=== PATIENT | female | born 1945 | race Caucasian/White ===

== ENCOUNTER 2016-10-19 10:31 | Outpatient (CLI) | payer MEDICARE, OTHER | END 2016-10-19 10:32 | disposition critical access hospital (66) | LOC: EMS 10:31 | PROVIDERS: ATTEND Surgery | DX: M54.2 Cervicalgia (principal); M54.5 Low back pain; V49.59XA Passenger injured in collision with other motor vehicles in traffic accident, initial encounter; Y92.413 State road as the place of occurrence of the external cause | CPT/HCPCS: A0425; A0429 ==

== ENCOUNTER 2016-10-19 10:55 | Emergency (ER) | payer OTHER, MEDICARE ==
--- NOTE | 2016-10-19 11:54 | XRAY Preliminary Report ---
Exam: XR Chest 2 View PA/LAT IMPRESSION: Negative 2-view chest radiography. [facility] SITE ID: [id number]
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
[2016-10-19 13:10] VITALS: BP 147/74
== END 2016-10-19 13:02 | disposition home or self-care (01) ==
LOC: EDUNIT# → ED 10:55
DX: S16.1XXA Strain of muscle, fascia and tendon at neck level, initial encounter (principal); V43.62XA Car passenger injured in collision with other type car in traffic accident, initial encounter; Y92.410 Unspecified street and highway as the place of occurrence of the external cause; M25.512 Pain in left shoulder
CPT/HCPCS: 71020; 72125; 99283; 99284

== ENCOUNTER 2016-11-16 08:35 | Outpatient (CLI) | payer MEDICARE ==
--- NOTE | 2016-11-20 08:15 | MRI Preliminary Report ---
Exam: MRI Cervical Spine W/O IMPRESSION: 1. Severe facet arthropathy on the right at C7-T1 with associated edema suggesting an active arthriti c process. Infection is a less likely differential consideration. 2. No significant central canal stenosis, cord compression or focal cord signal abnormality. 3. Severe arthritic changes at the articulations of the left C1 and C2 lateral masses. 4. Multilevel degenerative foraminal stenosis, especially on the right, see final report 5. Potentially more prominent lateral recess impingement on the left at C6-C7 from left posterior par acentral disk protrusion. 6. Additional prominent multilevel degenerative cervical spinal spondylosis is present, see final rep ort. 7. Mild cervical levoscoliosis and multiple minimal to mild chronic degenerative subluxations. 8. Diffuse degenerative disk disease, most severe at C6-C7 and to the right at midline at C3-C4. [facility] SITE ID: [id number]
--- NOTE | 2016-11-20 08:38 | MRI Report ---
EXAM: MRI CERVICAL SPINE WITHOUT CONTRAST EXAM DATE: 11/16/2016 09:53 AM. CLINICAL HISTORY: Years of chronic neck pain. Right arm and shoulder pain. Bilateral hand tingling. L eft lower extremity numbness and tingling. COMPARISONS: Cervical spine CT 10/19/2016. Cervical spine MRI 02/23/2009. TECHNIQUE: Multiplanar, multisequence T1-weighted and fluid-sensitive sequences of the cervical spine without contrast. Other: None. FINDINGS: Neurologic Structures: Normal MRI appearance of the cervical spinal cord. Alignment: Cervical spine levoscoliosis. Multilevel mild chronic-appearing degenerative cervical spin e subluxations. Bone Marrow: Mild to moderate multilevel degenerative endplate signal changes. This is especially pro minent at C6-C7 and also at C3-C4 and C4-C5. Prominent amorphous edema of bone and adjacent soft tissues at the right C7-T1 facet joint where ther e are findings of advanced degenerative arthritis. Significantly progressive compared to prior MRI. Interspace Levels/Facets: C1-C2: Severe asymmetric hypertrophic degenerative arthropathy at the articulations of the lateral ma sses of C1 and C2 on the left. Patent central canal, no cord impingement. C2-C3: Mild degenerative disk disease. Larger midline posterior disk protrusion. Mild central stenosi s without focal cord compression. Patent neural foramina. C3-C4: Moderate to severe degenerative disk disease. Marginal spurring and broad-based disk bulge. Mo derately prominent facet arthropathy on the right. Minimal central stenosis. No cord compression. Pat ent left foramen. Mild to moderate foraminal stenosis on the right. C4-C5: Moderate degenerative disk disease. Shallow broad-based disk bulge. Minimal central canal narr owing, no cord impingement. Facet arthropathy, mild on the left and moderate on the right. Right side uncinate process spurring. Patent left foramen. Moderate to severe right foraminal stenosis. C5-C6: Moderate degenerative disk disease. Shallow disk bulge. No significant central stenosis or cor d compression. Minimal left and moderate to marked right side facet arthropathy with facet spurring. Minimal foraminal stenosis, right greater than left. C6-C7: Severe degenerative disk disease. Marginal spurring and broad-based disk bulge. Minimal centra l stenosis, no cord impingement. Minimal facet arthropathy. Patent right foramen. The left foramen ap pears mildly narrowed but the left lateral recess is stenotic from an asymmetric hpye-yf-loiillt disk herniation that extends laterally into the left foramen, correlate to a left C7 radiculopathy. This may be progressive. C7-T1: Mild degenerative disk disease. Shallow broad-based bulge. No significant central stenosis. Ne gligible facet arthropathy on the left but severe-appearing facet arthropathy on the right with assoc iated edema that suggests a reactive and active process. Septic facet arthritis is a less likely diff erential consideration but clinical correlation is advised. Musculature: Mild diffuse posterior paraspinal muscle fatty atrophy without acute edema. Other: No focal prevertebral soft tissue thickening. IMPRESSION: 1. Severe facet arthropathy on the right at C7-T1 with associated edema suggesting an active arthriti c process. Infection is a less likely differential consideration. 2. No significant central canal stenosis, cord compression or focal cord signal abnormality. 3. Severe arthritic changes at the articulations of the left C1 and C2 lateral masses. 4. Multilevel degenerative foraminal stenosis as described above, predominantly on the right. 5. Potentially more prominent lateral recess impingement on the left at C6-C7 from left posterior par acentral disk protrusion. 6. Additional prominent multilevel degenerative cervical spinal spondylosis is present as detailed le aldo by level above. 7. Mild cervical levoscoliosis and multiple minimal to mild chronic degenerative subluxations. 8. Diffuse degenerative disk disease, most severe at C6-C7 and to the right of midline at C3-C4. [facility] Referring Provider Line: [phone] SITE ID: [id number]
== END 2016-11-16 08:36 | disposition home or self-care (01) ==
LOC: DI 08:35
PROVIDERS: ATTEND Physician Assistant Medical
DX: M50.21 Other cervical disc displacement, high cervical region (principal); M50.31 Other cervical disc degeneration, high cervical region; M47.892 Other spondylosis, cervical region; M47.893 Other spondylosis, cervicothoracic region
CPT/HCPCS: 72141

== ENCOUNTER 2016-12-08 08:52 | Outpatient (CLI) | payer MEDICARE ==
[2016-12-08 12:39] LABS: BASOPHILS # (AUTO) 0.1 10^3/uL (0.0-0.1); EOSINOPHILS # (AUTO) 0.1 10^3/uL (0.0-0.7); EOSINOPHILS % (AUTO) 2.5 %; HCT - HEMATOCRIT 39.7 % (37.0-47.0); HGB - HEMOGLOBIN 13.4 g/dL (12.0-16.0); LYMPHOCYTES # (AUTO) 1.8 10^3/uL (1.5-3.5); MEAN CORPUSCULAR HEMOGLOBIN 31.8 pg (27.0-31.0); MEAN CORPUSCULAR HGB CONC 33.8 g/dL (32.0-36.0); MEAN CORPUSCULAR VOLUME 94.1 fL (81.0-99.0); MEAN PLATELET VOLUME 7.2 fL (7.9-10.8); MONOCYTES # (AUTO) 0.7 10^3/uL (0.0-1.0); MONOCYTES % (AUTO) 13.1 %; NEUTROPHILS % (AUTO) 52.4 %; NUCLEATED RED BLOOD CELLS AUTO 0.1 /100WBC; RED BLOOD COUNT 4.21 10^6/uL (4.20-5.40); RED CELL DISTRIBUTION WIDTH 13.1 % (12.0-15.0); UNCORRECTED WHITE BLOOD COUNT 5.7 x10^3/uL; WHITE BLOOD COUNT 5.7 x10^3/uL (4.8-10.8)
[2016-12-08 12:57] LABS: ALBUMIN/GLOBULIN RATIO 1.6 (1.0-2.2); BILIRUBIN,TOTAL 0.7 mg/dL (0.2-1.0); CALCIUM 9.2 mg/dL (8.5-10.3); CREATININE 0.7 mg/dL (0.4-1.0); POTASSIUM 4.5 mmol/L (3.5-5.0)
== END 2016-12-08 08:53 | disposition home or self-care (01) ==
LOC: LAB.WCP 08:52
PROVIDERS: ATTEND Physician Assistant Medical
DX: Z51.81 Encounter for therapeutic drug level monitoring (principal); Z79.899 Other long term (current) drug therapy
CPT/HCPCS: 36415; 80053; 85025

== ENCOUNTER 2017-03-28 10:00 | Emergency (ER) | payer MEDICARE ==
[2017-03-28 10:13] VITALS: BP 166/82
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
--- NOTE | 2017-03-28 11:10 | XRAY Preliminary Report ---
Exam: XR FOREARM LT IMPRESSION: 1. Comminuted intra-articular impaction fracture of the distal left radius. 2. Minimally displaced avulsion fracture of the ulnar styloid. [facility] SITE ID: [id number]
--- NOTE | 2017-03-28 11:12 | XRAY Report ---
EXAM: LEFT FOREARM RADIOGRAPHY EXAM DATE: 03/28/2017 10:37 AM. CLINICAL HISTORY: Fell. COMPARISON: None. TECHNIQUE: 2 views. FINDINGS: Bones: Normal. No fractures or bone lesions. Joints: Impacted comminuted intra-articular fracture of the distal left radius. Minimally displaced u lnar styloid fracture. Soft Tissues: Normal. No soft tissue swelling. IMPRESSION: 1. Comminuted intra-articular impaction fracture of the distal left radius. 2. Minimally displaced avulsion fracture of the ulnar styloid. [facility] Referring Provider Line: [phone] SITE ID: [id number]
--- NOTE | 2017-03-28 11:17 | XRAY Preliminary Report ---
Exam: XR WRIST 4 VIEW LT IMPRESSION: 1. Comminuted intra-articular impaction fracture of the distal left radius. 2. Displaced avulsion fracture of the ulnar styloid. [facility] SITE ID: [id number]
--- NOTE | 2017-03-28 11:19 | XRAY Report ---
EXAM: LEFT WRIST RADIOGRAPHY EXAM DATE: 03/28/2017 10:38 AM. CLINICAL HISTORY: Fell. COMPARISON: None. TECHNIQUE: 4 views. FINDINGS: Bones: , Minute intra-articular impaction fracture of the distal left radius. Displaced avulsion frac ture of the ulnar styloid. Joints: Normal. No subluxations. Soft Tissues: Normal. No soft tissue swelling. IMPRESSION: 1. Comminuted intra-articular impaction fracture of the distal left radius. 2. Displaced avulsion fracture of the ulnar styloid. [facility] Referring Provider Line: [phone] SITE ID: [id number]
== END 2017-03-28 12:10 | disposition home or self-care (01) ==
LOC: ED 10:00
DX: S62.101A Fracture of unspecified carpal bone, right wrist, initial encounter for closed fracture (principal); W18.39XA Other fall on same level, initial encounter
CPT/HCPCS: 29105; 99283

== ENCOUNTER 2017-03-31 10:39 | Emergency (ER) | payer MEDICARE ==
[2017-03-31 10:50] VITALS: BP 136/74
--- NOTE | 2017-03-31 11:31 | ED Physician Documentation ---
History of Present Illness - Stated complaint Stated Complaint: SLING PROBLEM - Chief complaint Chief Complaint: Ext Problem - History obtained from History obtained from: Patient, Family - History of Present Illness Timing: Yesterday - Additonal information Additional information: Patient had a fall and broke her wrist 3 days ago.She was seen in the emergency department and had a splint placed. She was placed in a sling as well and today she comes into the emergency department with complaints of her affected hand being more painful and swollen and the edge of the wrist is laying over the edge of the sling. Review of Systems Constitutional: denies: Fever Eyes: denies: Decreased vision Respiratory: denies: Cough GI: denies: Vomiting Skin: denies: Rash Musculoskeletal: reports: Extremity pain, Joint pain, Extremity swelling, Joint swelling. denies: Neck pain, Back pain Neurologic: reports: Numbness. 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 - Present Medications Home Medications: Ambulatory Orders Medication Instructions Recorded Confirmed Thyroid,Pork [Nature-Throid] 32.5 mg PO DAILY 03/28/17 03/31/17 - Allergies Allergies/Adverse Reactions: Allergies Allergy/AdvReac Type Severity Reaction Status Date / Time iodine Allergy Anaphylaxis Verified 03/31/17 10:50 - Social History Does the pt smoke?: No Smoking Status: Never smoker Does the pt drink ETOH?: No Does the pt have substance abuse?: No - Immunizations Immunizations are current?: Yes PD ED PE NORMAL - Vitals Vital signs reviewed: Yes (Hypertensive mild) - General General: No acute distress, Well developed/nourished - HEENT HEENT: Atraumatic, PERRL - Neck Neck: Supple, no meningeal sign - Respiratory Respiratory: No respiratory distress - Derm Derm: Normal color, Warm and dry, No rash - Extremities Extremities: Other (Exam of the hand and fingers now with the wrist placed into a sugar tong splint and the sling appropriately placed shows normal distal neurovascular components. The patient has improvement in her symptoms.) - Neuro Neuro: No motor deficit, No sensory deficit Eye Opening: Spontaneous Motor: Obeys Commands Verbal: Oriented GCS Score: 15 - Psych Psych: Normal mood, Normal affect Results - Vitals Vitals: Vital Signs - 24 hr 03/31/17 10:48 Temperature 36.6 C Heart Rate 70 Respiratory 16 Rate Blood Pressure 136/74 H O2 Saturation 99 Oxygen O2 Source Room air Procedures - Splint (location) left wrist Splint applied by: Tech Type of splint: Fiberglass, Sugar tong Other: Patient tolerated well, No complications, Neurovascular intact, Good alignment, Sling provided PD MEDICAL DECISION MAKING - ED course Complexity details: reviewed old records, reviewed results, re-evaluated patient , considered differential, d/w patient ED course: 71-year-old female with a recent wrist fracture has had a ill fitting splint that is now been replaced with a sugar tong splint and back into a sling that is adequately placed and fitting. She has resolution of her symptoms. Departure - Departure Disposition: 01 Home, Self Care Clinical Impression: Wrist fracture, left Qualifiers: Encounter type: subsequent encounter Fracture type: closed Fracture healing: with routine healing Qualified Code(s): S62.102D - Fracture of unspecified carpal bone, left wrist, subsequent encounter for fracture with routine healing Condition: Stable Instructions: ED Fx Wrist General Follow-Up: Anne Dominique PA-C [Primary Care Provider] - [facility] [Provider Group]
== END 2017-03-31 11:43 | disposition home or self-care (01) ==
LOC: ED 10:39
DX: S62.102D Fracture of unspecified carpal bone, left wrist, subsequent encounter for fracture with routine healing (principal); X58.XXXD Exposure to other specified factors, subsequent encounter; M19.90 Unspecified osteoarthritis, unspecified site
CPT/HCPCS: 29105; 99282

== ENCOUNTER 2017-05-22 14:18 | Outpatient (CLI) | payer MEDICARE ==
--- NOTE | 2017-05-23 16:34 | DEXA Report ---
DEXA: 05/22/2017 CLINICAL INDICATION: Osteoporosis. TECHNIQUE: Dual energy x-ray absorptiometry (DXA) was performed on a [employer] system. Regions measured are the AP spine, femoral neck, and, if needed, forearm. COMPARISON: None. In accordance with the International Society for Clinical Densitometry (ISCD) guidelines, data from previous exams may be reanalyzed using current recommendations and techniques. This is done to allow a more accurate basis for comparison with the current study. FINDINGS The data for the lumbar spine is as follows: REGION BMD (g/cm/cm) T-SCORE Z-SCORE L1 0.945 -1.5 0.7 L2 0.984 -1.8 0.4 L3 1.141 -0.5 1.7 L4 1.143 -0.5 1.8 TOTAL 1.060 -1.0 1.2 NOTE: All evaluable vertebrae are used for classification. The data for the hip is as follows: REGION BMD (g/cm/cm) T-SCORE Z-SCORE Neck 0.653 -2.8 -0.6 TOTAL 0.734 -2.2 -0.2 NOTE: The femoral neck or total proximal femur, whichever is lowest, is used for classification. IMPRESSION THE WHO CLASSIFICATION BASED ON THE INTERNATIONAL REFERENCE STANDARD IS OSTEOPOROSIS (REFERENCE LEFT FEMORAL NECK). THE FRACTURE RISK IS HIGH. RECOMMENDATION: Patients with diagnosis of osteoporosis or osteopenia should have regular bone mineral density assessment. For those eligible for Medicare, routine testing is allowed once every 2 years. Testing frequency can be increased for patients who have rapidly progressing disease or for those who are receiving medical therapy to restore bone mass. COMMENT: World Health Organization (WHO) definitions for osteoporosis and osteopenia: NORMAL BMD: T-score at 1.0 or higher, fracture risk is low. OSTEOPENIA BMD: T-score between 1.0 and -2.5, fracture risk is increased. OSTEOPOROSIS BMD: T-score at 2.5 or lower, fracture risk high. National Osteoporosis Foundation recommends: 1. Obtain adequate dietary calcium (at least 1200 mg per day) and vitamin D (400 -800 international units per day). 2. Participate, as appropriate, in regular weightbearing and muscle- strengthening exercise. 3. Avoid tobacco use and reduce alcohol and caffeine intake. 4. For more detailed information see the website at www.NOF.org. TD: 05/22/2017 21:43 MTDWayne
== END 2017-05-22 14:19 | disposition home or self-care (01) ==
LOC: DI 14:18
PROVIDERS: ATTEND Physician Assistant Medical
DX: M81.0 Age-related osteoporosis without current pathological fracture (principal)
CPT/HCPCS: 77080

== ENCOUNTER 2017-09-29 09:05 | Outpatient (CLI) | payer MEDICARE ==
--- NOTE | 2017-10-01 11:17 | MRI Report ---
MRI LUMBAR SPINE WITHOUT CONTRAST EXAM DATE: 09/29/2017 INDICATION: 72-year-old female with low back pain and bilateral lower extremity radicular symptoms. P lease assess. TECHNIQUE: 1. T2 coronal. 2. Sagittal STIR, T1 and T2. 3. Axial T1 and T2. COMPARISON: None. FINDINGS: Radiographs (07/25/2017) have been reviewed, confirming the presence of 5 mwt-lam-qctwdlr, lumbar-typ e vertebrae with small hypoplastic ribs at what likely represents T12. There is a minimal, levoconvex curvature with the apex at L4. In the sagittal plane there is a very m ild (grade 1) anterolisthesis of L5 on S1, measuring roughly 3 mm. There appears to be sclerosis in t he right L5 pars interarticularis. No definite fracture is demonstrated. However, there probably is a pars defect on the left (see image 5 of series 301). The absence of any edema excludes the possibili ty of acute pars interarticularis fracture. Alignment in the sagittal plane is otherwise unremarkable . Degenerative changes are demonstrated in the disks at all levels from L2-L3 to L5-S1. There is at ana st mild disk space narrowing at L2-L3. Moderate to severe narrowing is seen at L3-L4 with mild-to-mod erate narrowing at L4-L5. The L1-L2 and L5-S1 disk space heights are preserved. There is type I reactive marrow change in the vertebral endplates at L3-L4 on the right. The marrow s ignal intensity is otherwise unremarkable. The conus terminates in an appropriate fashion at the L1-L2 disk level. There is no abnormal thickeni ng or lipomatous change of the filum. Axial Images: L1-L2: Tiny left intra-/extraforaminal protrusion. Minimal left foraminal stenosis. No spinal canal o r right foraminal narrowing. L2-L3: Small right intra-/extraforaminal protrusion. Larger, broad-based, left posterolateral and int ra-/extraforaminal extrusion. No central zone spinal stenosis or significant subarticular zone narrow ing. Mild right and hgcz-re-vmesqozc left foraminal stenoses. L3-L4: Circumferential disk bulge. Broad-based left intra-/extraforaminal extrusion. Larger, right po sterolateral and intra-/extraforaminal extrusion. Degenerative facet arthrosis with minimal bony hype rtrophy. Moderate redundancy of the ligamenta flava. The right subarticular zone is stenosed; however , no obvious impingement of traversing right L4 nerve root is demonstrated. No central zone or left s ubarticular zone stenosis. Mild left foraminal stenosis. Moderate to severe right foraminal narrowing . On the right a bony spur arising from the superior articular process of L4 projects into the forame n and appears to contact the posterior surface of the exiting L3 nerve root. The perineural fat is pa rtially effaced. No yuliet impingement of the nerve root is demonstrated. L4-L5: Circumferential disk bulge. Broad-based left intra-/extraforaminal extrusion. Larger, right in tra-/extraforaminal extrusion. Degenerative facet arthrosis with minimal bony hypertrophy. Moderate r edundancy of the ligamenta flava. No central zone spinal stenosis or significant subarticular zone na rrowing. Moderate to severe foraminal narrowing bilaterally. Bony spurs arising from the superior art icular processes of L5 project into the foramina and contact the posterior surface of the exiting L4 nerve roots bilaterally. The perineural fat is partially effaced. No yuliet compression of either nerv e root is demonstrated. L5-S1: Anterolisthesis with associated uncovering of the disk. Small right intra-/extraforaminal extr usion. Small left posterolateral extrusion. There is left subarticular zone stenosis. Noted is a conj oined, left L5-S1 nerve root sleeve. This explains the low position of the left L5 nerve root in the foramen. In the left subarticular zone the L5 and S1 nerve roots appear to be contacted by disk anter iorly and facets posteriorly. There could be mild impingement. No central zone or right subarticular zone stenosis. Mild foraminal narrowing. Noted is a small perineural cyst associated with the right S1 nerve root. The clinical significance i s doubtful. Regional paraspinous soft tissues are unremarkable. IMPRESSION: 1. Suspect unilateral, left-sided L5 pars interarticularis defect (nonacute). There is a minor (grade 1) anterolisthesis of L5 on S1. 2. Degenerative disk and facet changes are seen throughout the lumbar spine, as documented in detail above. 3. There is potentially significant foraminal narrowing at L3-L4 and L4-L5 on the right and at L4-L5 on the left. Bony spurs arising from the facet joints project into the foramina and contact the exiti ng nerve roots. No yuliet impingement of the nerve roots is demonstrated. However, there certainly cou ld be irritation of the nerve roots. Recommend clinical correlation for possible right L3, right L4 a nd/or left L4 radiculitis. 4. 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 A combination of f actors including small disk herniation and facet hypertrophy gives rise to left L5-S1 subarticular zo ne (lateral recess) stenosis. The left L5 and S1 nerve roots are contacted by disk anteriorly and fac et posteriorly in the left L5-S1 subarticular zone. There could be impingement of one or both of the nerve roots in the subarticular zone. Recommend clinical correlation for possible left L5 and/or S1 r adiculopathy. Referring Provider Line: [phone] SITE ID: [id number]
== END 2017-09-29 09:06 | disposition home or self-care (01) ==
LOC: DI 09:05
PROVIDERS: ATTEND Family Medicine
DX: M51.26 Other intervertebral disc displacement, lumbar region (principal); M51.27 Other intervertebral disc displacement, lumbosacral region; M51.36 Other intervertebral disc degeneration, lumbar region; M47.896 Other spondylosis, lumbar region; M43.17 Spondylolisthesis, lumbosacral region; M47.897 Other spondylosis, lumbosacral region
CPT/HCPCS: 72148

== ENCOUNTER 2018-01-16 11:41 | Outpatient (CLI) | payer MEDICARE ==
--- NOTE | 2018-01-18 16:48 | Mammography Report ---
Reason: SCREENING MAMMO Procedure Date: 01/16/2018 Accession Number: [id number] / [id number] Procedure: MGN - Screening Mammo Dig Bilat CPT Code: FULL RESULT: EXAM: Screening Mammo Dig Bilat DATE: 01/16/2018 12:03 PM CLINICAL HISTORY: 72 year-old nulliparous female with family history of breast cancer in a sister at age 40 and an aunt at age 50. TECHNIQUE: Bilateral CC and MLO views were obtained. COMPARISON: 03/23/2016, 03/16/2015, 01/02/2014, 12/30/2012. FINDINGS: The breasts demonstrate heterogeneously dense fibroglandular parenchyma bilaterally. A nodule in the left lateral breast is stable dating back to 2012, most likely a benign lymph node. In the left upper breast 9 cm deep to the nipple is a new asymmetry with increasing calcification and is not included on the cc view and warrants further spot views, preferably with 3-D tomography. No suspicious masses, clustered microcalcifications, or regions of architectural distortion are identified. IMPRESSION: Incomplete examination RECOMMENDATION: Additional evaluation as above. BIRADS CATEGORY 0: Incomplete examination STANDARD QUALIFYING STATEMENTS: 1. This examination was not reviewed with the aid of Computer-Aided Detection (CAD). 2. A negative or benign imaging report should not delay biopsy if clinically suspicious findings are present. Consider surgical consultation if warrented. More than 5% of cancers are not identified by imaging. 3. Dense breasts may obscure an underlying neoplasm. 4. This examination was reviewed without the aid of 3D breast imaging (tomosynthesis).
== END 2018-01-16 11:42 | disposition home or self-care (01) ==
LOC: DI.N 11:41
PROVIDERS: ATTEND Radiology Diagnostic Radiology
DX: Z12.31 Encounter for screening mammogram for malignant neoplasm of breast (principal); Z80.3 Family history of malignant neoplasm of breast
CPT/HCPCS: 77067

== ENCOUNTER 2018-02-06 14:12 | Outpatient (CLI) | payer MEDICARE ==
--- NOTE | 2018-02-06 15:34 | Mammography Report ---
Reason: ABN MAMMO - LT SPEC VIEWS Procedure Date: 02/06/2018 Accession Number: [id number] / [id number] Procedure: VENKATA - Diag Special Views Dig LT CPT Code: FULL RESULT: EXAM: Diag Special Views Dig LT DATE: 02/06/2018 2:52 PM CLINICAL HISTORY: Developing asymmetry on left breast MLO view on screening mammogram TECHNIQUE: Left breast: Spot compression MLO and ML breast views were performed. CC breast view., Kayden synthesis MLO and CC were performed. COMPARISON: None FINDINGS: This examination is read in correlation with the screening mammogram of January 16, 2018 There are scattered fibroglandular densities. The previous asymmetry does not persist on additional diagnostic views of the left breast. No mass, concerning cluster microcatheter locations, or architectural distortion is seen. IMPRESSION: BI-RADS 1. Negative. RECOMMENDATION: Recommend annual screening mammogram in one year BIRADS CATEGORY 1: Negative. STANDARD QUALIFYING STATEMENTS: 1. This examination was not reviewed with the aid of Computer-Aided Detection (CAD). 2. A negative or benign imaging report should not delay biopsy if clinically suspicious findings are present. Consider surgical consultation if warrented. More than 5% of cancers are not identified by imaging. 3. Dense breasts may obscure an underlying neoplasm.
== END 2018-02-06 14:13 | disposition home or self-care (01) ==
LOC: DI 14:12
PROVIDERS: ATTEND Family Medicine
DX: R92.8 Other abnormal and inconclusive findings on diagnostic imaging of breast (principal)

== ENCOUNTER 2018-06-26 21:52 | Emergency (ER) | payer MEDICARE ==
--- NOTE | 2018-06-26 21:59 | ED Physician Documentation ---
PD HPI SKIN - Stated complaint Stated Complaint: RASH - Chief complaint Chief Complaint: Wound - History obtained from History obtained from: Patient - History of Present Illness Timing - onset: Today Timing - details: Abrupt onset Pain level now: 0 Location: Back, RUE, LUE, RLE, LLE, Other (buttocks) Quality / character: Itchy Associated symptoms: No: Fever, Myalgias, Joint pain, Headache Contributing factors: Unknown Recently seen: Not recently seen - Additional information Additional information: c/o pruritic rash BUE, BLE, left flank/lower back, and buttocks. She has had a rash limited to RUE x 1-2 months, so unclear if this rash today is new or an extension of the RUE rash. 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: Hysterectomy - Present Medications Home Medications: Ambulatory Orders Medication Instructions Recorded Confirmed Thyroid,Pork [Nature-Throid] 32.5 mg PO DAILY 03/28/17 03/31/17 predniSONE [Prednisone] 40 mg PO DAILY 4 Days #8 tablet 06/26/18 - Allergies Allergies/Adverse Reactions: Allergies Allergy/AdvReac Type Severity Reaction Status Date / Time iodine Allergy Anaphylaxis Verified 06/26/18 21:58 - Social History Does the pt smoke?: No Smoking Status: Never smoker Does the pt drink ETOH?: No Does the pt have substance abuse?: No - Immunizations Immunizations are current?: Yes PD ED PE NORMAL - Vitals Vital signs reviewed: Yes - General General: Alert and oriented X 3, No acute distress, Well developed/nourished - HEENT HEENT: Moist mucous membranes, Pharynx benign - Respiratory Respiratory: No respiratory distress, Clear bilaterally PD ED PE EXPANDED - Derm Derm: Rash (maculopapular erythematous exanthem, discrete lesions without confluence, on bilateral buttocks, left flank and lower back, and all four extremities with sparing of hands/palms and feet/soles) Results - Vitals Vitals: Vital Signs - 24 hr 06/26/18 06/26/18 21:54 22:22 Temperature 36.8 C Heart Rate 77 72 Respiratory 18 17 Rate Blood Pressure 201/70 H 160/69 H O2 Saturation 99 100 Oxygen O2 Source Room air PD MEDICAL DECISION MAKING - ED course Complexity details: considered differential, d/w patient Departure - Departure Disposition: 01 Home, Self Care Clinical Impression: Rash Condition: Good Instructions: ED Erythema Follow-Up: Nicholas Arndt MD [Primary Care Provider] - (3-5 days if rash persists) Prescriptions: predniSONE [Prednisone] 40 mg PO DAILY 4 Days #8 tablet Discharge Date/Time: 06/26/18 22:30
[2018-06-26] MEDS ORDERED: diphenhydrAMINE 25 MG CAPSULE PO STA (22:15)
[2018-06-26] MEDS ORDERED: predniSONE 20 MG TABLET PO STA (22:15)
[2018-06-26 22:25] VITALS: BP 160/69
== END 2018-06-26 22:30 | disposition home or self-care (01) ==
LOC: ED 21:52
DX: R21 Rash and other nonspecific skin eruption (principal)
CPT/HCPCS: 99283; A9270; J7512

== ENCOUNTER 2019-03-12 11:08 | Outpatient (CLI) | payer MEDICARE ==
--- NOTE | 2019-03-13 08:20 | Mammography Report ---
Reason: ROUTINE MAMMO Procedure Date: 03/12/2019 Accession Number: [id number] / [id number] Procedure: MGN - Screening Mammo Dig Bilat CPT Code: Final Report FULL RESULT: EXAM: Screening Mammo Dig Bilat DATE: 03/12/2019 11:26 AM CLINICAL HISTORY: Screening encounter. History of nulliparity. Family history of breast cancer in a sister at the age of 58. TECHNIQUE: (B) - Bilateral CC and MLO views were obtained. COMPARISON: 02/06/2018 through 10/10/2010. PARENCHYMAL PATTERN: (A) - The breast(s) demonstrate(s) scattered fibroglandular densities. FINDINGS: There are no suspicious masses, calcifications, or areas of distortion. IMPRESSION: Negative examination. BI-RADS category 1. RECOMMENDATION: (ANNUAL) - Recommend routine annual screening mammography. BI-RADS CATEGORY: (1) - Negative. STANDARD QUALIFYING STATEMENTS: 1. This examination was not reviewed with the aid of Computer-Aided Detection (CAD). 2. A negative or benign imaging report should not preclude biopsy if clinically suspicious findings are present. 3. Dense breasts may obscure an underlying neoplasm. 4. This examination was reviewed without the aid of 3D breast imaging (tomosynthesis).
== END 2019-03-12 11:09 | disposition home or self-care (01) ==
LOC: DI.N 11:08
DX: Z12.31 Encounter for screening mammogram for malignant neoplasm of breast (principal); Z80.3 Family history of malignant neoplasm of breast
CPT/HCPCS: 77067

== ENCOUNTER 2019-05-22 08:00 | Outpatient (CLI) | payer MEDICARE, OTHER ==
[2019-05-22 12:05] LABS: BASOPHILS # (AUTO) 0.1 10^3/uL (0.0-0.1); BASOPHILS % (AUTO) 1.1 %; EOSINOPHILS # (AUTO) 0.1 10^3/uL (0.0-0.7); HGB - HEMOGLOBIN 13.4 g/dL (12.0-16.0); LYMPHOCYTES # (AUTO) 1.4 10^3/uL (1.5-3.5); LYMPHOCYTES % (AUTO) 29.8 %; MEAN CORPUSCULAR HEMOGLOBIN 31.4 pg (27.0-31.0); MEAN CORPUSCULAR HGB CONC 32.2 g/dL (32.0-36.0); MEAN CORPUSCULAR VOLUME 97.4 fL (81.0-99.0); MEAN PLATELET VOLUME 9.6 fL (7.9-10.8); MONOCYTES # (AUTO) 0.6 10^3/uL (0.0-1.0); NEUTROPHILS # (AUTO) 2.5 10^3/uL (1.5-6.6); NEUTROPHILS % (AUTO) 53.9 %; PLT - PLATELET COUNT 260 10^3/uL (130-450); RED BLOOD COUNT 4.27 10^6/uL (4.20-5.40); RED CELL DISTRIBUTION WIDTH 13.1 % (12.0-15.0); WHITE BLOOD COUNT 4.6 x10^3/uL (4.8-10.8)
[2019-05-22 12:29] LABS: HEMOGLOBIN A1C 0.53 g/dL; HEMOGLOBIN A1C % 5.6 % (4.6-6.2)
[2019-05-22 12:48] LABS: ALBUMIN 4.3 g/dL (3.2-5.5); ALBUMIN/GLOBULIN RATIO 1.5 (1.0-2.2); ALKALINE PHOSPHATASE 39 IU/L (42-121); ALT ALANINE AMINOTRANSFERASE 31 IU/L (10-60); AST ASPARTATE AMINOTRANSFERASE 25 IU/L (10-42); BILIRUBIN,TOTAL 0.7 mg/dL (0.2-1.0); BUN - BLOOD UREA NITROGEN 30 mg/dL (6-20); CALCIUM 9.3 mg/dL (8.5-10.3); CARBON DIOXIDE - CO2 27 mmol/L (21-32); CHLORIDE 100 mmol/L (101-111); CHOL/HDL RATIO 3.1 (<4.4); CHOLESTEROL 268 mg/dL; CREATININE 0.7 mg/dL (0.4-1.0); GFR - MDRD 82 (>89); GLUCOSE 84 mg/dL (70-100); HDL CHOLESTEROL 86 mg/dL; SODIUM 137 mmol/L (135-145); TOTAL PROTEIN 7.1 g/dL (6.7-8.2)
== END 2019-05-22 23:59 | disposition home or self-care (01) ==
LOC: LAB.N 08:00
PROVIDERS: ATTEND Family Medicine
DX: E03.9 Hypothyroidism, unspecified (principal); E78.2 Mixed hyperlipidemia
CPT/HCPCS: 36415; 80053; 80061; 83036; 83721; 84443; 85025

== ENCOUNTER 2020-04-20 15:13 | Outpatient (CLI) | payer MEDICARE ==
--- NOTE | 2020-04-21 09:17 | Mammography Report ---
BILATERAL DIGITAL SCREENING MAMMOGRAM 3D/2D: 04/20/2020 CLINICAL: Family history of breast cancer. Routine screening. Comparison is made to exams dated: 03/12/2019 mammogram, 02/06/2018 mammogram, 01/16/2018 mammogram, 03/23/2016 mammogram, 03/16/2015 mammogram, and 01/02/2014 mammogram - [facility]. T here are scattered fibroglandular elements in both breasts. No significant masses, calcifications, or other findings are seen in either breast. There has been no significant interval change. IMPRESSION: NEGATIVE There is no mammographic evidence of malignancy. A 1 year screening mammogram is recommended. This exam was interpreted at Station ID: [id number]. NOTE: For mammograms, a report in lay terms will be sent to the patient. Approximately 15% of breast malignancies will not be visualized mammographically. In the management of a palpable breast mass, a negative mammogram must not discourage biopsy of a clinically suspicious lesion. Electronically Signed By: Theo Fisher M.D. ddp/penrad:04/20/2020 16:29:04 ACR BI-RADS Category 1: Negative 3341F PARENCHYMAL PATTERN: (A) - The breast(s) demonstrate(s) scattered fibroglandular densities. BI-RADS CATEGORY: (1) - 1 RECOMMENDATION: (ANNUAL) - Recommend routine annual screening mammography. [id number] 1 year screening LATERALITY: (B)
== END 2020-04-20 15:14 | disposition home or self-care (01) ==
LOC: DI.N 15:13
DX: Z12.31 Encounter for screening mammogram for malignant neoplasm of breast (principal); Z80.3 Family history of malignant neoplasm of breast

== ENCOUNTER 2020-07-19 15:20 | Outpatient (CLI) | payer MEDICARE ==
--- NOTE | 2020-07-19 17:08 | Ultrasound Report ---
PROCEDURE: Duplex Ext Veins Left INDICATIONS: EDEMA LEG TECHNIQUE: Real-time imaging, as well as color and pulse Doppler interrogation, were performed of the lower extr emity deep veins from the inguinal ligament to the popliteal fossa. COMPARISON: None. FINDINGS: The deep veins are normally compressible, and free of intraluminal thrombus. Color and pu lse Doppler demonstrate normal phasic intraluminal flow. There is normal augmentation response to di stal compression maneuver. IMPRESSION: No deep venous thrombosis. Reviewed by: Tanya Guzman MD on 07/19/2020 5:07 PM PDT Approved by: Tanya Guzman MD on 07/19/2020 5:07 PM PDT Station ID: [id number]
== END 2020-07-19 15:21 | disposition home or self-care (01) ==
LOC: DI 15:20
PROVIDERS: ATTEND Physician Assistant Medical
DX: R60.0 Localized edema (principal)

== ENCOUNTER 2020-07-30 08:00 | Outpatient (CLI) | payer MEDICARE ==
[2020-07-30 11:52] LABS: BASOPHILS # (AUTO) 0.1 10^3/uL (0.0-0.1); BASOPHILS % (AUTO) 1.3 %; EOSINOPHILS # (AUTO) 0.2 10^3/uL (0.0-0.7); EOSINOPHILS % (AUTO) 2.9 %; HCT - HEMATOCRIT 41.2 % (37.0-47.0); HGB - HEMOGLOBIN 13.8 g/dL (12.0-16.0); LYMPHOCYTES # (AUTO) 1.4 10^3/uL (1.5-3.5); MEAN CORPUSCULAR HEMOGLOBIN 32.2 pg (27.0-31.0); MEAN CORPUSCULAR HGB CONC 33.5 g/dL (32.0-36.0); MEAN PLATELET VOLUME 9.3 fL (7.9-10.8); MONOCYTES # (AUTO) 0.6 10^3/uL (0.0-1.0); MONOCYTES % (AUTO) 11.2 %; NEUTROPHILS % (AUTO) 57.4 %; PLT - PLATELET COUNT 265 10^3/uL (130-450); RED BLOOD COUNT 4.29 10^6/uL (4.20-5.40); RED CELL DISTRIBUTION WIDTH 12.9 % (12.0-15.0); WHITE BLOOD COUNT 5.3 x10^3/uL (4.8-10.8)
[2020-07-30 13:30] LABS: ALBUMIN 4.4 g/dL (3.2-5.5); ALBUMIN/GLOBULIN RATIO 1.5 (1.0-2.2); ALKALINE PHOSPHATASE 39 IU/L (42-121); ALT ALANINE AMINOTRANSFERASE 28 IU/L (10-60); AST ASPARTATE AMINOTRANSFERASE 27 IU/L (10-42); BILIRUBIN,TOTAL 0.6 mg/dL (0.2-1.0); BUN - BLOOD UREA NITROGEN 20 mg/dL (6-20); CALCIUM 9.6 mg/dL (8.5-10.3); CARBON DIOXIDE - CO2 29 mmol/L (21-32); CHLORIDE 100 mmol/L (101-111); CHOL/HDL RATIO 3.4 (<4.4); CHOLESTEROL 288 mg/dL; CREATININE 0.7 mg/dL (0.4-1.0); GFR - MDRD 81 (>89); GLUCOSE 94 mg/dL (70-100); HDL CHOLESTEROL 84 mg/dL; LDL CHOLESTEROL,CALCULATED 192 mg/dL; LDL/HDL RATIO 2.3 (<4.4); POTASSIUM 4.4 mmol/L (3.5-5.0); SODIUM 138 mmol/L (135-145); THYROID STIMULATING HORMONE 3.2 uIU/mL (0.34-5.60); TOTAL PROTEIN 7.3 g/dL (6.7-8.2); TRIGLYCERIDES 61 mg/dL; VLDL CHOLESTEROL 12 mg/dL
== END 2020-07-30 23:59 | disposition home or self-care (01) ==
LOC: LAB.WCP 08:00
PROVIDERS: ATTEND Physician Assistant Medical
DX: E78.2 Mixed hyperlipidemia (principal); E03.9 Hypothyroidism, unspecified; J30.9 Allergic rhinitis, unspecified
CPT/HCPCS: 36415; 80053; 80061; 83721; 84443; 85025

== ENCOUNTER 2021-06-15 10:43 | Outpatient (CLI) | payer MEDICARE ==
--- NOTE | 2021-06-15 11:11 | DEXA Report ---
PROCEDURE: Dexa Spine and/or Hip INDICATIONS: OSTEOPOROSIS TECHNIQUE: Dual energy x-ray absorptiometry (DXA) was performed on a [employer] System. Regions measur ed are the AP Spine, femoral neck, and if needed forearm. COMPARISON: None. FINDINGS: Lumbar Spine: Bone Mineral Density 0.956 g/cm/cm,T score -1.9, osteopenia Left Hip: Bone Mineral Density 0.734 g/cm/cm,T score -2.1, osteopenia Left Femoral Neck: Bone Mineral Density 0.703 g/cm/cm, T score -2.4, osteopenia (T score greater or equal to -1.0: NORMAL) (T score from -1.1 to -2.4: OSTEOPENIA) (T score less than or equal to -2.5 to: OSTEOPOROSIS) Impression: Bone mineral density classified as osteopenia Patients with diagnosis of osteoporosis or osteopenia should have regular bone mineral density assess ment. For those eligible for Medicare, routine testing is allowed once every 2 years. Testing frequ ency can be increased for patients who have rapidly progressing disease or for those who are receivin g medical therapy to restore bone mass. Reviewed by: Fabian Sumner on 06/15/2021 11:09 AM PST Approved by: Fabian Sumner on 06/15/2021 11:09 AM PST Station ID: [id number]
== END 2021-06-15 10:44 | disposition home or self-care (01) ==
LOC: DI 10:43
PROVIDERS: ATTEND Physician Assistant Medical
DX: M85.89 Other specified disorders of bone density and structure, multiple sites (principal)

== ENCOUNTER 2021-06-24 10:35 | Outpatient (CLI) | payer MEDICARE ==
[2021-06-24 12:18] LABS: BASOPHILS # (AUTO) 0.1 10^3/uL (0.0-0.1); EOSINOPHILS # (AUTO) 0.1 10^3/uL (0.0-0.7); EOSINOPHILS % (AUTO) 1.6 %; HCT - HEMATOCRIT 40.6 % (37.0-47.0); HGB - HEMOGLOBIN 13.5 g/dL (12.0-16.0); LYMPHOCYTES # (AUTO) 1.4 10^3/uL (1.5-3.5); LYMPHOCYTES % (AUTO) 27.7 %; MEAN CORPUSCULAR HEMOGLOBIN 31.9 pg (27.0-31.0); MEAN CORPUSCULAR HGB CONC 33.3 g/dL (32.0-36.0); MEAN PLATELET VOLUME 9.3 fL (7.9-10.8); MONOCYTES # (AUTO) 0.5 10^3/uL (0.0-1.0); MONOCYTES % (AUTO) 9.6 %; NEUTROPHILS # (AUTO) 2.9 10^3/uL (1.5-6.6); NEUTROPHILS % (AUTO) 59.7 %; PLT - PLATELET COUNT 257 10^3/uL (130-450); RED BLOOD COUNT 4.23 10^6/uL (4.20-5.40); WHITE BLOOD COUNT 4.9 x10^3/uL (4.8-10.8)
[2021-06-24 13:36] LABS: THYROID STIMULATING HORMONE 1.63 uIU/mL (0.34-5.60)
[2021-06-24 13:38] LABS: ALBUMIN 4.3 g/dL (3.2-5.5); ALBUMIN/GLOBULIN RATIO 1.5 (1.0-2.2); ALKALINE PHOSPHATASE 42 IU/L (42-121); ALT ALANINE AMINOTRANSFERASE 25 IU/L (10-60); AST ASPARTATE AMINOTRANSFERASE 27 IU/L (10-42); BILIRUBIN,TOTAL 0.6 mg/dL (0.2-1.0); BUN - BLOOD UREA NITROGEN 26 mg/dL (6-20); CALCIUM 9.5 mg/dL (8.5-10.3); CARBON DIOXIDE - CO2 27 mmol/L (21-32); CHLORIDE 101 mmol/L (101-111); CHOL/HDL RATIO 3.2 (<4.4); CHOLESTEROL 279 mg/dL; CREATININE 0.7 mg/dL (0.4-1.0); GFR - MDRD 81 (>89); GLUCOSE 92 mg/dL (70-100); HDL CHOLESTEROL 88 mg/dL; LDL CHOLESTEROL,CALCULATED 181 mg/dL; LDL/HDL RATIO 2.1 (<4.4); SODIUM 137 mmol/L (135-145); TOTAL PROTEIN 7.1 g/dL (6.7-8.2); TRIGLYCERIDES 51 mg/dL; VLDL CHOLESTEROL 10 mg/dL
== END 2021-06-24 10:36 | disposition home or self-care (01) ==
LOC: LAB.N 10:35
PROVIDERS: ATTEND Physician Assistant Medical
DX: E78.2 Mixed hyperlipidemia (principal); E03.9 Hypothyroidism, unspecified; J30.9 Allergic rhinitis, unspecified
CPT/HCPCS: 36415; 80053; 80061; 83721; 84443; 85025

== ENCOUNTER 2021-07-21 08:27 | Outpatient (CLI) | payer MEDICARE ==
--- NOTE | 2021-07-22 15:09 | Mammography Report ---
BILATERAL DIGITAL SCREENING MAMMOGRAM 3D/2D: 07/21/2021 CLINICAL: Family history of breast cancer. Routine screening. Comparison is made to exams dated: 04/20/2020 mammogram, 03/12/2019 mammogram, 02/06/2018 mammogram, and 01/16/2018 mammogram - [facility]. There are scattered fibroglandular elements in both breasts. No significant masses, calcifications, or other findings are seen in either breast. There has been no significant interval change. IMPRESSION: NEGATIVE There is no mammographic evidence of malignancy. A 1 year screening mammogram is recommended. This exam was interpreted at Station ID: [id number]. NOTE: For mammograms, a report in lay terms will be sent to the patient. Approximately 15% of breast malignancies will not be visualized mammographically. In the management of a palpable breast mass, a negative mammogram must not discourage biopsy of a clinically suspicious lesion. Electronically Signed By: Eugenio Patel M.D. ar/penrad:07/21/2021 09:21:49 ACR BI-RADS Category 1: Negative 3341F PARENCHYMAL PATTERN: (A) - The breast(s) demonstrate(s) scattered fibroglandular densities. BI-RADS CATEGORY: (1) - 1 RECOMMENDATION: (ANNUAL) - Recommend routine annual screening mammography. [id number] 1 year screening LATERALITY: (B)
== END 2021-07-21 08:28 | disposition home or self-care (01) ==
LOC: DI.N 08:27
DX: Z12.31 Encounter for screening mammogram for malignant neoplasm of breast (principal); Z80.3 Family history of malignant neoplasm of breast

== ENCOUNTER 2021-09-30 09:24 | Outpatient (CLI) | payer MEDICARE ==
[2021-09-30 12:45] LABS: ALBUMIN 4.2 g/dL (3.2-5.5); ALBUMIN/GLOBULIN RATIO 1.7 (1.0-2.2); ALKALINE PHOSPHATASE 37 IU/L (42-121); ALT ALANINE AMINOTRANSFERASE 27 IU/L (10-60); AST ASPARTATE AMINOTRANSFERASE 26 IU/L (10-42); BILIRUBIN,TOTAL 0.4 mg/dL (0.2-1.0); BUN - BLOOD UREA NITROGEN 27 mg/dL (6-20); CALCIUM 9.2 mg/dL (8.5-10.3); CARBON DIOXIDE - CO2 28 mmol/L (21-32); CHLORIDE 101 mmol/L (101-111); CHOL/HDL RATIO 2.1 (<4.4); CHOLESTEROL 194 mg/dL; CREATININE 0.7 mg/dL (0.4-1.0); GFR - MDRD 81 (>89); GLUCOSE 90 mg/dL (70-100); HDL CHOLESTEROL 94 mg/dL; POTASSIUM 3.9 mmol/L (3.5-5.0); SODIUM 135 mmol/L (135-145); TOTAL PROTEIN 6.7 g/dL (6.7-8.2); TRIGLYCERIDES 31 mg/dL
== END 2021-09-30 09:25 | disposition home or self-care (01) ==
LOC: LAB.N 09:24
PROVIDERS: ATTEND Physician Assistant Medical
DX: E78.2 Mixed hyperlipidemia (principal)
CPT/HCPCS: 36415; 80053; 80061; 83721

== ENCOUNTER 2022-10-14 11:47 | Outpatient (CLI) | payer MEDICARE ==
[~2022-10-14 11:47] MED LIST: GADOBUTROL 7.5 MMOL/7.5 ML VIAL ONE
[2022-10-14 12:32] LABS: CREATININE 0.8 mg/dL (0.4-1.0)
[2022-10-14] MEDS ORDERED: GADOBUTROL 7.5 MMOL/7.5 ML VIAL IVP ONE (14:31)
--- NOTE | 2022-10-16 08:13 | MRI Report ---
PROCEDURE: BRAIN W/WO INDICATIONS: POSTTRAUMATIC PINEDA CONTRAST: GADAVIST 5.2 ML TECHNIQUE: Noncontrast axial T1 spin echo, axial T2 fast spin echo, sagittal and axial FLAIR, coronal T2 fast sp in echo, axial gradient echo, axial diffusion and ADC through the brain. After the administration of contrast, axial and coronal T1 spin echo with fat saturation through the brain. COMPARISON: None. FINDINGS: Image quality: Excellent. CSF spaces: Basal cisterns are patent. No extra-axial fluid collections. Ventricles are normal in size and shape. Brain: No midline shift. No intracranial bleeds or masses. No abnormal intracranial enhancement. There is cerebral volume loss for age. There is periventricular white matter chronic small vessel is chemic change. The brainstem appears normal. Diffusion-weighted images demonstrate no acute ischemi c insults. No chronic ischemic insults. Age-related volume loss and very mild, age-appropriate small vessel ischemic change. Normal intravascular flow voids are present. Skull and face: Calvarial marrow is normal in signal. Orbits appear normal. Sinuses: Sinuses and mastoids appear clear. IMPRESSION: Negative brain MRI with and without contrast for patient age Reviewed by: Lobito Nicole MD on 10/16/2022 8:11 AM PDT Approved by: Lobito Nicole MD on 10/16/2022 8:11 AM PDT Station ID: [id number]
== END 2022-10-14 11:48 | disposition home or self-care (01) ==
LOC: LAB 11:47
PROVIDERS: ATTEND Physician Assistant Medical
DX: G44.329 Chronic post-traumatic headache, not intractable (principal)
CPT/HCPCS: 36415; 70553; 82565; A9585

== ENCOUNTER 2023-02-15 14:00 | Outpatient (CLI) | payer MEDICARE ==
[2023-02-15 18:01] LABS: BASOPHILS # (AUTO) 0.1 10^3/uL (0.0-0.1); BASOPHILS % (AUTO) 1.1 %; EOSINOPHILS # (AUTO) 0.3 10^3/uL (0.0-0.7); EOSINOPHILS % (AUTO) 4.5 %; HCT - HEMATOCRIT 40.7 % (37.0-47.0); HGB - HEMOGLOBIN 13.5 g/dL (12.0-16.0); LYMPHOCYTES # (AUTO) 1.6 10^3/uL (1.5-3.5); LYMPHOCYTES % (AUTO) 25.6 %; MEAN CORPUSCULAR HEMOGLOBIN 32.3 pg (27.0-31.0); MEAN CORPUSCULAR HGB CONC 33.2 g/dL (32.0-36.0); MEAN CORPUSCULAR VOLUME 97.4 fL (81.0-99.0); MEAN PLATELET VOLUME 9.6 fL (7.9-10.8); MONOCYTES # (AUTO) 0.7 10^3/uL (0.0-1.0); MONOCYTES % (AUTO) 10.7 %; NEUTROPHILS # (AUTO) 3.6 10^3/uL (1.5-6.6); NEUTROPHILS % (AUTO) 57.8 %; PLT - PLATELET COUNT 273 10^3/uL (130-450); RED BLOOD COUNT 4.18 10^6/uL (4.20-5.40); RED CELL DISTRIBUTION WIDTH 13.2 % (12.0-15.0); WHITE BLOOD COUNT 6.3 x10^3/uL (4.8-10.8)
[2023-02-15 18:28] LABS: THYROID STIMULATING HORMONE 2.37 uIU/mL (0.34-5.60)
[2023-02-15 18:32] LABS: ALBUMIN 4.5 g/dL (3.2-5.5); ALBUMIN/GLOBULIN RATIO 1.6 (1.0-2.2); ALKALINE PHOSPHATASE 52 IU/L (42-121); ALT ALANINE AMINOTRANSFERASE 37 IU/L (10-60); AST ASPARTATE AMINOTRANSFERASE 36 IU/L (10-42); BILIRUBIN,TOTAL 0.3 mg/dL (0.2-1.0); BUN - BLOOD UREA NITROGEN 32 mg/dL (6-20); CALCIUM 9.9 mg/dL (8.5-10.3); CARBON DIOXIDE - CO2 28 mmol/L (21-32); CHLORIDE 102 mmol/L (101-111); CHOL/HDL RATIO 3.3 (<4.4); CHOLESTEROL 271 mg/dL; CREATININE 0.7 mg/dL (0.6-1.3); GFR - MDRD 81 (>89); GLUCOSE 88 mg/dL (74-104); HDL CHOLESTEROL 81 mg/dL; LDL CHOLESTEROL,CALCULATED 162 mg/dL; POTASSIUM 4.2 mmol/L (3.5-4.5); SODIUM 136 mmol/L (135-145); TOTAL PROTEIN 7.3 g/dL (6.4-8.9); TRIGLYCERIDES 140 mg/dL (48-352); VLDL CHOLESTEROL 28 mg/dL
== END 2023-02-15 14:01 | disposition home or self-care (01) ==
LOC: LAB.N 14:00
PROVIDERS: ATTEND Physician Assistant Medical
DX: E03.9 Hypothyroidism, unspecified (principal); J30.9 Allergic rhinitis, unspecified; E78.2 Mixed hyperlipidemia
CPT/HCPCS: 36415; 80053; 80061; 83721; 84443; 85025

== ENCOUNTER 2023-02-22 14:40 | Outpatient (CLI) | payer MEDICARE ==
--- NOTE | 2023-02-22 16:03 | XRAY Report ---
PROCEDURE: Hips 2V BILAT INDICATIONS: HIP PAIN,LEFT TECHNIQUE: An AP view the pelvis and frog-leg lateral views of the bilateral hips were acquired. COMPARISON: None. FINDINGS: Bones: No fractures or dislocations. No suspicious bony lesions. Soft tissues: No suspicious soft tissue calcifications or masses. IMPRESSION: No acute bony abnormality. If there remains a high clinical concern for fracture, consider cross-sect ional imaging now. If pain persists, consider repeat x-ray in 10-14 days or cross-sectional imaging. Reviewed by: Lobito Nicole MD on 02/22/2023 4:02 PM PDT Approved by: Lobito Nicole MD on 02/22/2023 4:02 PM PDT Station ID: [id number]
== END 2023-02-22 14:41 | disposition home or self-care (01) ==
LOC: DI 14:40
PROVIDERS: ATTEND Physician Assistant Medical
DX: M25.552 Pain in left hip (principal)

== ENCOUNTER 2023-02-26 14:36 | Outpatient (CLI) | payer MEDICARE ==
--- NOTE | 2023-02-28 12:03 | Mammography Report ---
BILATERAL DIGITAL SCREENING MAMMOGRAM 3D/2D: 02/26/2023 CLINICAL: Routine screening. Family history of breast cancer. Comparison is made to exams dated: 07/21/2021 mammogram, 04/20/2020 mammogram, 03/12/2019 mammogram, 02/06/2018 mammogram, 01/16/2018 mammogram, and 03/23/2016 mammogram - [facility]. There are scattered areas of fibroglandular density in both breasts (category b / 25%-50% glandular t issue). No significant masses, calcifications, or other findings are seen in either breast. IMPRESSION: NEGATIVE There is no mammographic evidence of malignancy. A 1 year screening mammogram is recommended. Based on the Tyrer Cuzick model (a risk assessment model) the patients lifetime risk is 6.3% and her 10 year risk is 0.0%. According to the ACR, ACS, and NCCN guidelines, an annual breast MRI exam betzy g with mammogram is recommended if the patients lifetime risk is 20% or greater. This exam was interpreted at Station ID: [id number]. NOTE: For mammograms, a report in lay terms will be sent to the patient. Approximately 15% of breast malignancies will not be visualized mammographically. In the management of a palpable breast mass, a negative mammogram must not discourage biopsy of a clinically suspicious lesion. Electronically Signed By: Loraine Avila M.D., PH.D adam/latanya:02/27/2023 23:05:38 letter sent: No_Letter ACR BI-RADS Category 1: Negative 3341F PARENCHYMAL PATTERN: (A) - The breast(s) demonstrate(s) scattered fibroglandular densities. BI-RADS CATEGORY: (1) - 1 Mammogram [id number] 1 year screening LATERALITY: (B)
== END 2023-02-26 14:37 | disposition home or self-care (01) ==
LOC: DI.N 14:36
DX: Z12.31 Encounter for screening mammogram for malignant neoplasm of breast (principal); R92.323 Mammographic fibroglandular density, bilateral breasts; Z80.3 Family history of malignant neoplasm of breast

== ENCOUNTER 2023-06-18 09:43 | Outpatient (CLI) | payer MEDICARE ==
[2023-06-18 12:14] LABS: CHOLESTEROL 267 mg/dL; HDL CHOLESTEROL 88 mg/dL; LDL CHOLESTEROL,CALCULATED 170 mg/dL; LDL/HDL RATIO 1.9 (<4.4); TRIGLYCERIDES 47 mg/dL (48-352); VLDL CHOLESTEROL 9 mg/dL
== END 2023-06-18 09:44 | disposition home or self-care (01) ==
LOC: LAB.N 09:43
PROVIDERS: ATTEND Physician Assistant Medical
DX: E78.2 Mixed hyperlipidemia (principal)
CPT/HCPCS: 36415; 80061; 83721

== ENCOUNTER 2023-08-16 15:06 | Outpatient (CLI) | payer MEDICARE ==
--- NOTE | 2023-08-16 15:56 | DEXA Report ---
PROCEDURE: Dexa Spine and/or Hip INDICATIONS: POST MENOPAUSAL TECHNIQUE: Dual energy x-ray absorptiometry (DXA) was performed on a [email or web address] System. Regions measur ed are the AP Spine, femoral neck, and if needed forearm. COMPARISON: DEXA on March 15, 2022 FINDINGS: Lumbar Spine (L2-L4): Bone Mineral Density: 1.033 g/cm/cm,T score: -1.4. Since the most recent prior study, there has been a statistically significant increase in bone mineral density by 5.1 percent. The L1-L4 bone mineral density is 1.002 g/cm/cm with a T score of -1.5. Left Femoral Neck: Bone Mineral Density: 0.595 g/cm/cm, T score: -3.2. Left Hip: Bone Mineral Density: 0.696 g/cm/cm,T score: -2.5. Since the most recent prior study, there has been a statistically significant decrease in bone mineral density by 6.3 percent. (T score greater or equal to -1.0: NORMAL) (T score from -1.1 to -2.4: OSTEOPENIA) (T score less than or equal to -2.5 to: OSTEOPOROSIS) Impression: By WHO criteria, this patient has osteoporosis. Interval statistical increase in bone mineral density of the lumbar spine although this may be limite d as prior DEXA evaluated the L1-L4 vertebral bodies. Interval statistical decrease in bone mineral d ensity of the hip. Patients with diagnosis of osteoporosis or osteopenia should have regular bone mineral density assess ment. For those eligible for Medicare, routine testing is allowed once every 2 years. Testing frequ ency can be increased for patients who have rapidly progressing disease or for those who are receivin g medical therapy to restore bone mass. Reviewed by: Zbigniew Braden MD on 08/16/2023 3:55 PM PDT Approved by: Zbigniew Braden MD on 08/16/2023 3:55 PM PDT Station ID: [id number]
== END 2023-08-16 15:07 | disposition home or self-care (01) ==
LOC: DI 15:06
PROVIDERS: ATTEND Physician Assistant Medical
DX: M81.0 Age-related osteoporosis without current pathological fracture (principal); Z78.0 Asymptomatic menopausal state

== ENCOUNTER 2023-09-19 09:40 | Outpatient (CLI) | payer MEDICARE ==
[2023-09-19 12:47] LABS: CHOL/HDL RATIO 2.7 (<4.4); CHOLESTEROL 216 mg/dL; HDL CHOLESTEROL 81 mg/dL; TRIGLYCERIDES 35 mg/dL (48-352)
== END 2023-09-19 09:41 | disposition home or self-care (01) ==
LOC: LAB.N 09:40
PROVIDERS: ATTEND Physician Assistant Medical
DX: E78.2 Mixed hyperlipidemia (principal)
CPT/HCPCS: 36415; 80061; 83721